=== PATIENT | male | born 1945 | race Caucasian/White ===

== ENCOUNTER → 2019-02-12 | Outpatient (CLI) | payer MEDICARE, OTHER ==
[~2019-02-12] MED LIST: BARIUM SUSPENSION 2.1% (VANILLA SILQ) 450 ML PO ONE; CATHETER FLUSH 10 ML SYR IV PRN; HOLD METFORMIN - RECEIVED CONTRAST 20 ML VIAL IV SCH; IOHEXOL 350 MG/ML 100 ML (OMNIPAQUE 350) VIAL IV ONE; NS 100 ML (IVPB) BAG IV ONE
--- NOTE | 2019-02-12 09:12 | Diagnostic Imaging Report ---
EXAMINATION: CT Chest with intravenous contrast, CT Abdomen and Pelvis without and with intravenous contrast. TECHNIQUE: Pre and post intravenous contrast axial imaging of the abdomen and pelvis and post contrast axial imaging of the chest were performed. All CT scans use one or more of the following dose optimizing techniques: automated exposure control, MA and/or KvP adjustment based on a patient size and exam type, or iterative reconstruction. HISTORY: PANCREATIC MASS COMPARISON: None available. FINDINGS: The lungs are clear without edema or pneumonia. No pleural effusion or pneumothorax. No suspicious nodules. There is mild dependent atelectasis. Heart size is normal. No pericardial effusion. Aorta is normal in caliber. There is no axillary or supraclavicular lymphadenopathy. There is no mediastinal lymphadenopathy. There are mild coronary artery calcifications. There are two indeterminate liver lesions. One in segment 8 measures 9 mm (series 3, image 21). The other in segment seven measures 11 mm (series 3, image 122). There is a cyst in segment two. There is a 26 x 33 mm mass centered in the pancreatic head which invades the duodenum, possibly circumferentially (series 3, image 144). It involves both the 2nd and 3rd portions of the duodenum. It exerts mass effect on the very distal most common bile duct which is slightly irregular with mild extrahepatic and central intra-hepatic biliary ductal dilation. There is no involvement of the superior mesenteric vein or portal vein. There is no involvement of the superior mesenteric artery. There is no involvement of the celiac artery. The kidneys are normal. There is no hydronephrosis. Urinary bladder is normal. There are no dilated loops of large or small bowel. No obstruction or inflammation. No free fluid or air. No abdominal or pelvic lymphadenopathy. Aorta is normal in caliber without aneurysm. There are no suspicious osseus lesions. IMPRESSION: 1. Pancreatic head mass invading the duodenum, possibly circumferentially involving the 2nd 3rd portions of duodenum. 2. Mass effect on the distal common bile duct with mild extrahepatic and central intrahepatic biliary ductal dilation. 3. No involvement of the mesenteric arterial or venous vasculature. 4. Indeterminate liver lesions measuring about 1 cm, not clearly cystic based on attenuation and indeterminate for metastases Dictated by: Dictated on workstation # [id number]
== END ==
LOC: RAD 07:46
PROVIDERS: ATTEND Family Medicine
DX: K86.89 Other specified diseases of pancreas (principal); K76.9 Liver disease, unspecified
CPT/HCPCS: 71260; 74178

== ENCOUNTER → 2019-02-20 | Outpatient (CLI) | payer MEDICARE, OTHER ==
[2019-02-20 09:24] LABS: BASOPHILS # (AUTO) 0.1 10^3/uL (0.0-0.1); BASOPHILS % (AUTO) 1 % (0-10); EOSINOPHILS # (AUTO) 0.2 10^3/uL (0.0-0.3); EOSINOPHILS % (AUTO) 3 % (0-10); HEMATOCRIT 40 % (40-54); HEMOGLOBIN 13.3 G/DL (13.3-17.7); LYMPHOCYTES # (AUTO) 1.9 X 10^3 (1.0-4.0); LYMPHOCYTES % (AUTO) 24 % (12-44); MEAN CORPUSCULAR HEMOGLOBIN 29 PG (25-34); MEAN CORPUSCULAR HGB CONC 33 G/DL (32-36); MEAN CORPUSCULAR VOLUME 89 FL (80-99); MEAN PLATELET VOLUME 10.8 FL (7.4-10.4); MONOCYTES # (AUTO) 0.9 X 10^3 (0.0-1.0); MONOCYTES % (AUTO) 12 % (0-12); NEUTROPHILS # (AUTO) 4.9 X 10^3 (1.8-7.8); NEUTROPHILS % (AUTO) 62 % (42-75); PLATELET COUNT 210 10^3/uL (130-400); RED CELL DISTRIBUTION WIDTH 14.1 % (10.0-14.5)
[2019-02-20 09:50] LABS: ALANINE AMINOTRANSFERASE 430 U/L (0-55); ALBUMIN 4.1 GM/DL (3.2-4.5); ALKALINE PHOSPHATASE 313 U/L (40-136); BILIRUBIN,TOTAL 2.8 MG/DL (0.1-1.0); BUN/CREATININE RATIO 12; CALCIUM 9.9 MG/DL (8.5-10.1); CARBON DIOXIDE 26 MMOL/L (21-32); CHLORIDE 98 MMOL/L (98-107); CREATININE SERUM 1.04 MG/DL (0.60-1.30); GFR ESTIMATED > 60; GLUCOSE 133 MG/DL (70-105); POTASSIUM 4.2 MMOL/L (3.6-5.0); SODIUM 135 MMOL/L (135-145); TOTAL PROTEIN 7.4 GM/DL (6.4-8.2)
--- NOTE | 2019-02-20 13:53 | Diagnostic Imaging Report ---
INDICATION: Pancreatic head mass. TECHNIQUE: Serum blood glucose level at the time of injection is 130 mg/dL. Patient was administered 15.3 mCi of F-18 FDG intravenously in the left antecubital location and PET imaging from the top of the skull to mid thighs was performed. Noncontrast CT was also performed for attenuation correction and anatomic correlation. COMPARISON: No prior PET studies are available for comparison. Comparison is made with recent CT exam from 02/12/2019. FINDINGS: There is symmetric activity throughout the brain. Soft tissues of the neck are unremarkable. No hilar or mediastinal hypermetabolism is seen. No suspicious pulmonary parenchymal hypermetabolism is identified. There are linear zones of parenchymal density in bilateral lower lobes suggestive of atelectasis. There are several foci of hypermetabolism within the liver correlating with the small low densities noted on recent CT which are too small to characterize. SUV max is approximately 6.4. Intense hypermetabolism in the region of the pancreatic head mass is seen with SUV max of approximately 10.3. No other regions of hypermetabolism are identified. IMPRESSION: Hypermetabolic pancreatic head mass consistent with pancreatic neoplasm. In addition, there are at least two foci of hypermetabolism within the liver, suggestive of hepatic metastases. Dictated by: Dictated on workstation # [id number]
== END ==
LOC: RAD 09:10
PROVIDERS: ATTEND Internal Medicine Hematology & Oncology
DX: K86.89 Other specified diseases of pancreas (principal); N39.8 Other specified disorders of urinary system; R63.4 Abnormal weight loss
CPT/HCPCS: 36415; 80053; 83615; 85025

== ENCOUNTER → 2019-04-16 | Outpatient (CLI) | payer MEDICARE, OTHER ==
[2019-04-16 07:47] LABS: BASOPHILS % (AUTO) 0 % (0-10); EOSINOPHILS # (AUTO) 0.1 10^3/uL (0.0-0.3); EOSINOPHILS % (AUTO) 4 % (0-10); HEMATOCRIT 31 % (40-54); HEMOGLOBIN 10.2 G/DL (13.3-17.7); LYMPHOCYTES # (AUTO) 0.7 X 10^3 (1.0-4.0); LYMPHOCYTES % (AUTO) 33 % (12-44); MEAN CORPUSCULAR HEMOGLOBIN 30 PG (25-34); MEAN CORPUSCULAR HGB CONC 33 G/DL (32-36); MEAN CORPUSCULAR VOLUME 91 FL (80-99); MEAN PLATELET VOLUME 8.6 FL (7.4-10.4); MONOCYTES # (AUTO) 0.1 X 10^3 (0.0-1.0); MONOCYTES % (AUTO) 4 % (0-12); NEUTROPHILS # (AUTO) 1.3 X 10^3 (1.8-7.8); NEUTROPHILS % (AUTO) 59 % (42-75); PLATELET COUNT 173 10^3/uL (130-400); RED CELL DISTRIBUTION WIDTH 16.8 % (10.0-14.5); WHITE BLOOD COUNT 2.2 10^3/uL (4.3-11.0)
[2019-04-16 08:09] LABS: ALANINE AMINOTRANSFERASE 64 U/L (0-55); ALBUMIN 3.9 GM/DL (3.2-4.5); ALKALINE PHOSPHATASE 118 U/L (40-136); BILIRUBIN,TOTAL 0.9 MG/DL (0.1-1.0); BUN/CREATININE RATIO 9; CALCIUM 9.3 MG/DL (8.5-10.1); CARBON DIOXIDE 24 MMOL/L (21-32); CHLORIDE 104 MMOL/L (98-107); CREATININE SERUM 1.03 MG/DL (0.60-1.30); GFR ESTIMATED > 60; GLUCOSE 103 MG/DL (70-105); POTASSIUM 4.1 MMOL/L (3.6-5.0); SODIUM 138 MMOL/L (135-145)
== END ==
LOC: LAB 07:32
PROVIDERS: ATTEND Internal Medicine Hematology & Oncology
DX: C25.0 Malignant neoplasm of head of pancreas (principal)
CPT/HCPCS: 36415; 80053; 83615; 85025; 86301

== ENCOUNTER → 2019-04-24 | Outpatient (CLI) | payer MEDICARE, OTHER ==
[2019-04-24 09:15] LABS: BASOPHILS # (AUTO) 0.1 10^3/uL (0.0-0.1); BASOPHILS % (AUTO) 2 % (0-10); EOSINOPHILS # (AUTO) 0.2 10^3/uL (0.0-0.3); EOSINOPHILS % (AUTO) 5 % (0-10); HEMATOCRIT 36 % (40-54); HEMOGLOBIN 11.6 G/DL (13.3-17.7); LYMPHOCYTES # (AUTO) 1.1 X 10^3 (1.0-4.0); LYMPHOCYTES % (AUTO) 24 % (12-44); MEAN CORPUSCULAR HEMOGLOBIN 30 PG (25-34); MEAN CORPUSCULAR HGB CONC 32 G/DL (32-36); MEAN CORPUSCULAR VOLUME 93 FL (80-99); MEAN PLATELET VOLUME 9.1 FL (7.4-10.4); MONOCYTES # (AUTO) 0.8 X 10^3 (0.0-1.0); MONOCYTES % (AUTO) 16 % (0-12); NEUTROPHILS # (AUTO) 2.5 X 10^3 (1.8-7.8); NEUTROPHILS % (AUTO) 54 % (42-75); PLATELET COUNT 328 10^3/uL (130-400); WHITE BLOOD COUNT 4.7 10^3/uL (4.3-11.0)
[2019-04-24 09:42] LABS: ALANINE AMINOTRANSFERASE 27 U/L (0-55); ALKALINE PHOSPHATASE 108 U/L (40-136); BILIRUBIN,TOTAL 0.9 MG/DL (0.1-1.0); BUN/CREATININE RATIO 10; CALCIUM 9.3 MG/DL (8.5-10.1); CARBON DIOXIDE 23 MMOL/L (21-32); CHLORIDE 104 MMOL/L (98-107); CREATININE SERUM 1.01 MG/DL (0.60-1.30); GFR ESTIMATED > 60; GLUCOSE 112 MG/DL (70-105); POTASSIUM 4.4 MMOL/L (3.6-5.0); SODIUM 141 MMOL/L (135-145)
--- NOTE | 2019-04-24 12:44 | Diagnostic Imaging Report ---
INDICATION: Pancreatic cancer. Study is performed to assess response to treatment and restaging. TECHNIQUE: Serum blood glucose level at the time of injection was 119 mg/dL. The patient was administered 14.4 mCi of F-18 FDG intravenously in the right antecubital location, and PET imaging was performed from the top of the skull to mid thighs. Noncontrast CT was also performed for attenuation correction and anatomic correlation. COMPARISON: Correlation is made with prior PET/CT from 02/20/[address] chest, abdomen, and pelvis study from 02/12/2019. FINDINGS: There is symmetric activity throughout the brain. Soft tissues of the neck are unremarkable. No suspicious hypermetabolism in the chest is identified. There has been significant reduction in the degree of hypermetabolism in the region of the pancreatic head when compared with prior study. There is some mild residual uptake with SUV max of approximately 4.8. Mild uptake involving several small liver lesions is also seen but also appears to be less intense when compared with prior exam. Patient has an internal/external biliary drain. No new focus of hypermetabolism in the abdomen or pelvis is seen. IMPRESSION: Decrease in size of pancreatic head mass as well as overall decrease in the degree of hypermetabolism when compared with prior PET/CT study from two months earlier. There is also some decrease in intensity of hepatic metastases since the prior exam. No new abnormality is identified. Dictated by: Dictated on workstation # [id number]
== END ==
LOC: RAD 08:52
PROVIDERS: ATTEND Internal Medicine Hematology & Oncology
DX: C25.9 Malignant neoplasm of pancreas, unspecified (principal); C78.7 Secondary malignant neoplasm of liver and intrahepatic bile duct
CPT/HCPCS: 36415; 80053; 85025

== ENCOUNTER → 2019-08-01 | Outpatient (CLI) | payer MEDICARE, OTHER ==
[2019-08-01 11:22] LABS: HEMATOCRIT 33 % (40-54); HEMOGLOBIN 10.7 G/DL (13.3-17.7); MEAN CORPUSCULAR HEMOGLOBIN 32 PG (25-34); MEAN CORPUSCULAR HGB CONC 32 G/DL (32-36); MEAN CORPUSCULAR VOLUME 99 FL (80-99); RED CELL DISTRIBUTION WIDTH 17.5 % (10.0-14.5)
[2019-08-01 11:23] LABS: BASOPHILS % (AUTO) 1 % (0-10); EOSINOPHILS % (AUTO) 0 % (0-10); LYMPHOCYTES % (AUTO) 12 % (12-44); MEAN PLATELET VOLUME 10.3 FL (7.4-10.4); MONOCYTES % (AUTO) 7 % (0-12); PLATELET COUNT 48 10^3/uL (130-400)
[2019-08-01 11:25] LABS: BASOPHILS # (AUTO) 0.1 10^3/uL (0.0-0.1); LYMPHOCYTES # (AUTO) 1.4 X 10^3 (1.0-4.0); MONOCYTES # (AUTO) 0.8 X 10^3 (0.0-1.0)
[2019-08-01 11:27] LABS: NEUTROPHILS % (AUTO) 77 % (42-75)
[2019-08-01 11:28] LABS: NEUTROPHILS # (AUTO) 9.3 X 10^3 (1.8-7.8)
== END ==
LOC: LAB FS 10:17
PROVIDERS: ATTEND Internal Medicine Hematology & Oncology
DX: C25.0 Malignant neoplasm of head of pancreas (principal)
CPT/HCPCS: 36415; 85025

== ENCOUNTER 2019-08-08 11:00 | Outpatient (RCR) | payer MEDICARE, OTHER ==
[2019-07-04 11:49] LABS: HEMATOCRIT 35 % (40-54); MEAN CORPUSCULAR HEMOGLOBIN 31 PG (25-34); MEAN CORPUSCULAR HGB CONC 32 G/DL (32-36); MEAN CORPUSCULAR VOLUME 98 FL (80-99); PLATELET COUNT 48 10^3/uL (130-400); RED CELL DISTRIBUTION WIDTH 16.4 % (10.0-14.5); WHITE BLOOD COUNT 17.6 10^3/uL (4.3-11.0)
[2019-07-04 11:50] LABS: BASOPHILS % (AUTO) 1 % (0-10); EOSINOPHILS % (AUTO) 0 % (0-10); LYMPHOCYTES % (AUTO) 10 % (12-44); MEAN PLATELET VOLUME 9.7 FL (7.4-10.4); MONOCYTES % (AUTO) 9 % (0-12); NEUTROPHILS % (AUTO) 71 % (42-75)
[2019-07-04 11:51] LABS: BASOPHILS # (AUTO) 0.1 10^3/uL (0.0-0.1); LYMPHOCYTES # (AUTO) 1.7 X 10^3 (1.0-4.0); MONOCYTES # (AUTO) 1.5 X 10^3 (0.0-1.0); NEUTROPHILS # (AUTO) 12.4 X 10^3 (1.8-7.8)
[2019-07-11 12:01] LABS: ALANINE AMINOTRANSFERASE 18 U/L (0-55); ALBUMIN 3.8 GM/DL (3.2-4.5); ALKALINE PHOSPHATASE 117 U/L (40-136); BILIRUBIN,TOTAL 0.4 MG/DL (0.1-1.0); BUN/CREATININE RATIO 11; CALCIUM 9.2 MG/DL (8.5-10.1); CARBON DIOXIDE 26 MMOL/L (21-32); CHLORIDE 103 MMOL/L (98-107); CREATININE SERUM 0.96 MG/DL (0.60-1.30); GFR ESTIMATED > 60; GLUCOSE 148 MG/DL (70-105); POTASSIUM 4.3 MMOL/L (3.6-5.0); SODIUM 142 MMOL/L (135-145); TOTAL PROTEIN 7.2 GM/DL (6.4-8.2)
[2019-07-11 12:02] LABS: HEMATOCRIT 37 % (40-54); HEMOGLOBIN 11.6 G/DL (13.3-17.7); MEAN CORPUSCULAR HEMOGLOBIN 32 PG (25-34); MEAN CORPUSCULAR HGB CONC 32 G/DL (32-36); MEAN CORPUSCULAR VOLUME 100 FL (80-99); MEAN PLATELET VOLUME 10.3 FL (7.4-10.4); PLATELET COUNT 279 10^3/uL (130-400); RED CELL DISTRIBUTION WIDTH 18.1 % (10.0-14.5); WHITE BLOOD COUNT 9.4 10^3/uL (4.3-11.0)
[2019-07-11 12:03] LABS: BASOPHILS # (AUTO) 0.1 10^3/uL (0.0-0.1); BASOPHILS % (AUTO) 1 % (0-10); EOSINOPHILS # (AUTO) 0.2 10^3/uL (0.0-0.3); EOSINOPHILS % (AUTO) 2 % (0-10); LYMPHOCYTES # (AUTO) 2.2 X 10^3 (1.0-4.0); LYMPHOCYTES % (AUTO) 23 % (12-44); MONOCYTES # (AUTO) 1.1 X 10^3 (0.0-1.0); MONOCYTES % (AUTO) 11 % (0-12); NEUTROPHILS # (AUTO) 5.9 X 10^3 (1.8-7.8); NEUTROPHILS % (AUTO) 63 % (42-75)
[2019-08-08 11:23] LABS: HEMATOCRIT 34 % (40-54); HEMOGLOBIN 11.1 G/DL (13.3-17.7); MEAN CORPUSCULAR HEMOGLOBIN 32 PG (25-34); WHITE BLOOD COUNT 6.6 10^3/uL (4.3-11.0)
[2019-08-08 11:24] LABS: BASOPHILS % (AUTO) 1 % (0-10); EOSINOPHILS # (AUTO) 0.3 10^3/uL (0.0-0.3); EOSINOPHILS % (AUTO) 4 % (0-10); LYMPHOCYTES # (AUTO) 1.6 X 10^3 (1.0-4.0); LYMPHOCYTES % (AUTO) 25 % (12-44); MEAN CORPUSCULAR HGB CONC 32 G/DL (32-36); MEAN CORPUSCULAR VOLUME 98 FL (80-99); MEAN PLATELET VOLUME 10.9 FL (7.4-10.4); MONOCYTES # (AUTO) 0.9 X 10^3 (0.0-1.0); MONOCYTES % (AUTO) 14 % (0-12); NEUTROPHILS # (AUTO) 3.7 X 10^3 (1.8-7.8); NEUTROPHILS % (AUTO) 56 % (42-75); PLATELET COUNT 179 10^3/uL (130-400); RED CELL DISTRIBUTION WIDTH 19.3 % (10.0-14.5)
[2019-08-08 11:36] LABS: POTASSIUM 4.2 MMOL/L (3.6-5.0); SODIUM 134 MMOL/L (135-145)
[2019-08-08 11:37] LABS: ALANINE AMINOTRANSFERASE 31 U/L (0-55); ALBUMIN 3.9 GM/DL (3.2-4.5); ALKALINE PHOSPHATASE 103 U/L (40-136); BILIRUBIN,TOTAL 0.4 MG/DL (0.1-1.0); BUN/CREATININE RATIO 10; CALCIUM 9.3 MG/DL (8.5-10.1); CARBON DIOXIDE 24 MMOL/L (21-32); CHLORIDE 99 MMOL/L (98-107); CREATININE SERUM 1.05 MG/DL (0.60-1.30); GFR ESTIMATED > 60; GLUCOSE 122 MG/DL (70-105); TOTAL PROTEIN 7.3 GM/DL (6.4-8.2)
== END 2019-10-02 | disposition home or self-care (01) ==
LOC: LAB FS 11:00
PROVIDERS: ATTEND Internal Medicine Hematology & Oncology
DX: C25.0 Malignant neoplasm of head of pancreas (principal)
CPT/HCPCS: 36415; 80053; 83615; 85025; 86301

== ENCOUNTER → 2019-08-14 | Outpatient (CLI) | payer MEDICARE, OTHER ==
--- NOTE | 2019-08-14 13:08 | Diagnostic Imaging Report ---
EXAMINATION: PET/CT. INDICATION: Pancreatic ductal adenocarcinoma. TECHNIQUE: PET/CT imaging was obtained from the base of the skull through the pelvis after the administration of 15.5 mCi of F-18 fluorodeoxyglucose into the right antecubital fossa. Limited CT imaging was utilized for localization and attenuation correction purposes. The low energy CT utilized for attenuation correction is not considered to be of high enough spatial resolution to allow in and of itself a separate anatomical analysis. The patient weight was 215 pounds, height 6' 3", blood glucose level 108. COMPARISON: The previous PET/CT exam with color images performed on 04/24/2019 is not available for direct comparison. The study was able to be reviewed on PACS, however. FINDINGS: The report from the previous exam did note a reduction in the degree of hypermetabolism in the region of the pancreatic head when compared to the prior study of 02/20/2019. The maximum SUV in this area was 4.8. On this study, the maximum SUV in the region of the head of the pancreas is approximately 3. The CT images through the head of the pancreas seems stable when compared to the prior exam as well. The previous exam also suggested mild uptake involving several small liver lesions. An SUV value was not computed for these areas of abnormal uptake, however. On the axial series of this exam, there is a small linear area of increased uptake in the right lobe of the liver (image 181 of 335). This has a maximum SUV of approximately 3.4; however, there is no corresponding abnormality seen on the sagittal coronal reconstructed images and consequently this finding could be related to volume averaging as opposed to a discrete lesion. The liver is otherwise unremarkable. There is no other hypermetabolic activity seen to suggest the presence of malignancy. Physiologic activity is again seen in the brain, heart, kidneys, bowel, and bladder. The CT images failed to show any sign of an acute abnormality. The biliary drain noted on the prior exam is again evident and seems similar in position to the prior study. The splenomegaly seen on the prior exam is also no different. As seen on the prior exam, there is mild atelectasis/scar formation in each lung base. The lungs are otherwise generally clear. IMPRESSION: 1. There appears to be diminished uptake in the region of the head of the pancreas when compared to the report of the prior exam. There is no clear evidence for metastatic disease involving the liver either. 2. There is no other hypermetabolic activity seen to suggest the presence of malignancy. Dictated by: Dictated on workstation # [id number]
== END ==
LOC: RAD 10:09
PROVIDERS: ATTEND Internal Medicine Hematology & Oncology
DX: C25.0 Malignant neoplasm of head of pancreas (principal)

== ENCOUNTER → 2019-10-12 | Outpatient (CLI) | payer MEDICARE, OTHER ==
[~2019-10-12] MED LIST changes: -BARIUM SUSPENSION 2.1% (VANILLA SILQ) 450 ML PO ONE; +DIATRIZOATE MEGLUM/SODIUM 37% 120 ML (GASTROGRAFIN) PO ONE
--- NOTE | 2019-10-12 13:47 | Diagnostic Imaging Report ---
PROCEDURE: CT abdomen and pelvis with contrast. TECHNIQUE: Multiple contiguous axial images were obtained through the abdomen and pelvis after administration of intravenous contrast. Auto Exposure Controls were utilized during the CT exam to meet ALARA standards for radiation dose reduction. INDICATION: Percutaneous biliary catheter, changed approximately four days ago. Patient complains of nausea and abdominal distention. COMPARISON: Correlation is made with prior CT from 02/12/2019. FINDINGS: Imaging through lung bases does show areas of linear parenchymal density in bilateral lower lobes consistent with some scarring or atelectasis. Since prior study, patient has had an internal/external percutaneous biliary catheter placed which extends into the right lobe of the liver. The distal loop is located at the junction of the second and third portion of the duodenum. The degree of the biliary ductal dilatation has significantly improved since prior exam. Gallbladder is unremarkable. Subtle low-density lesions within the right lobe of the liver appears stable. No new liver mass is identified. Previously noted pancreatic mass invading the duodenum is not as well seen on today's study. There is some pancreatic ductal dilatation in the pancreatic head and body. Patient does have fairly significant distention of the stomach with fluid. There is also significant distention of the second portion of the duodenum. The third and fourth portion appear to be decompressed. No adrenal mass is identified. The spleen is unremarkable. Kidneys are unremarkable. Aorta is non-aneurysmal. Remainder of the bowel loops are decompressed. No free fluid or fluid collection is seen. The bladder and prostate are unremarkable. No definite abdominal or pelvic lymphadenopathy is seen. Bony structures are unremarkable. IMPRESSION: 1. Placement of internal/external biliary drainage catheter since CT from 02/12/2019. The degree of biliary ductal dilatation has improved. 2. Stable right lobe liver masses. 3. There is fairly significant distention of the stomach and proximal duodenum, as described, suspicious for obstruction at the level of the second portion of the duodenum. Third and fourth portions of duodenum and remainder of the small bowel is decompressed. Patient may benefit from an NG tube. 4. No other significant abnormality is detected. Dictated by: Dictated on workstation # [id number]
== END ==
LOC: RAD FS 10:20
PROVIDERS: ATTEND Internal Medicine Hematology & Oncology
DX: K76.89 Other specified diseases of liver (principal); R11.0 Nausea; R14.0 Abdominal distension (gaseous); Z96.89 Presence of other specified functional implants
CPT/HCPCS: 74177

== ENCOUNTER → 2020-02-19 | Outpatient (CLI) | payer MEDICARE, OTHER ==
--- NOTE | 2020-02-19 11:45 | Diagnostic Imaging Report ---
INDICATION: Pancreatic carcinoma, restaging. TECHNIQUE: The serum blood glucose level at the time of injection was 102 mg/dL. The patient was administered 14.0 mCi of F-18 FDG intravenously in the right antecubital location and PET imaging was performed from the top of the skull to the mid thighs. A noncontrast CT was also performed for attenuation correction and anatomic correlation. COMPARISON: No prior imaging is available for comparison. FINDINGS: There is symmetric activity throughout the brain. The soft tissues of the neck are unremarkable. No definite hilar hypermetabolism is seen. There is a probable hypermetabolic lymph node in the mediastinum posterior to the esophagus at the level of the aortic arch measuring 14 mm. The SUV max is approximately 5.5. No other mediastinal uptake is seen. There are small bilateral pleural effusions present. Imaging through the abdomen does show a percutaneous biliary drain as well as a common duct stent. Numerous areas of hypermetabolism in the peripancreatic and central retroperitoneal regions are noted. An area of hypermetabolism adjacent to the stent shows an SUV max of 8.7. An enlarged left periaortic lymph node at the level of the kidneys measures 15 mm and shows an SUV max of 7.5. There are additional hypermetabolic central retroperitoneal and peripancreatic lymph nodes. A 14 mm retrocrural hypermetabolic lymph node is present showing an SUV max of 5.2. The small and large bowel loops are normal in caliber. There is no free fluid. No other hypermetabolic foci within the abdomen or pelvis are seen. There is diffuse osseous uptake of activity. Increased activity is seen throughout the cervical, thoracic, and lumbar spine. There is activity noted throughout the bony pelvis, bilateral ribs, and sternum as well as bilateral shoulders and proximal femora. IMPRESSION: Numerous foci of hypermetabolism are identified. There are hypermetabolic lymph nodes in the mediastinum as well as the peripancreatic region as well as the central retroperitoneum and retrocrural region of the abdomen. There is also diffuse osseous hypermetabolic activity, as described, without definite CT correlate. Correlation with MRI of the spine would be useful to evaluate for osseous metastatic disease. No other significant abnormality is detected. Dictated by: Dictated on workstation # [id number]
== END ==
LOC: RAD 09:00
PROVIDERS: ATTEND Internal Medicine Hematology & Oncology
DX: C25.9 Malignant neoplasm of pancreas, unspecified (principal)
CPT/HCPCS: 78815; A9552

== ENCOUNTER → 2020-03-21 | Outpatient (CLI) | payer MEDICARE, OTHER ==
[2020-03-21 11:09] LABS: HEMATOCRIT 23 % (40-54); HEMOGLOBIN 7.3 G/DL (13.3-17.7); MEAN CORPUSCULAR HEMOGLOBIN 34 PG (25-34); MEAN CORPUSCULAR HGB CONC 32 G/DL (32-36); MEAN CORPUSCULAR VOLUME 106 FL (80-99); MEAN PLATELET VOLUME 10.5 FL (7.4-10.4); PLATELET COUNT 111 10^3/uL (130-400); WHITE BLOOD COUNT 7.3 10^3/uL (4.3-11.0)
[2020-03-21 11:10] LABS: BASOPHILS % (AUTO) 1 % (0-10); EOSINOPHILS # (AUTO) 0.1 10^3/uL (0.0-0.3); EOSINOPHILS % (AUTO) 2 % (0-10); LYMPHOCYTES # (AUTO) 1.4 X 10^3 (1.0-4.0); LYMPHOCYTES % (AUTO) 19 % (12-44); MONOCYTES # (AUTO) 0.7 X 10^3 (0.0-1.0); MONOCYTES % (AUTO) 10 % (0-12); NEUTROPHILS % (AUTO) 69 % (42-75)
== END ==
LOC: LAB FS 10:42
PROVIDERS: ATTEND Internal Medicine Hematology & Oncology
DX: C25.0 Malignant neoplasm of head of pancreas (principal)
CPT/HCPCS: 36415; 82728; 83540; 85025; 86301

== ENCOUNTER → 2020-03-28 | Outpatient (CLI) | payer MEDICARE, OTHER ==
--- NOTE | 2020-03-28 14:28 | Diagnostic Imaging Report ---
PROCEDURE: CT abdomen and pelvis without contrast. TECHNIQUE: Multiple contiguous axial images were obtained through the abdomen and pelvis without the use of intravenous contrast. Auto Exposure Controls were utilized during the CT exam to meet ALARA standards for radiation dose reduction. INDICATION: Pancreatic cancer COMPARISON with CT abdomen and pelvis performed 10/12/2019. That exam included intravenous contrast. Was also correlated with a metabolic PET CT performed 02/19/2020. FINDINGS: Small bilateral pleural effusions, nonloculated, but slightly increased in the interim. There are multiple new low density but believed solid masses having developed in the right greater than left hepatic lobes, presumptively multifocal hepatic metastases. The largest of these is measuring 3.6 cm in segment 7. Retrocrural mass shown to be metabolically active adjacent to the upper abdominal aorta is 1.6 cm, slightly increased from the correlative PET and new from the comparison CT. Additional new smaller subcentimeter retrocrural lymph nodes have developed, presumed progressive metastases. There pancreatic body and tail atrophy and ductal dilatation. Soft tissue fullness at the pancreatic head peripheral to the stent. It is difficult to measure with accuracy given the absence of enteric and vascular contrast media. There is an internal/external biliary drainage catheter distally looped in the duodenum. Periaortic retroperitoneal adenopathy is not notably changed anatomically when correlated with earlier PET. These lesions were metabolically active and presumed metastatic. There is resolution of prior gastric dilatation. There is no bowel obstruction. There is a small volume of pelvic free fluid increased from prior. No discrete lytic or sclerotic bony lesion. IMPRESSION: Development of multifocal hepatic metastases, retrocrural periaortic and mesenteric adenopathy again noted. The former slightly increased internal/external biliary drainage catheter in good alignment without appreciable abnormal ductal dilatation at this nonenhanced study. No suspicious bony lesion. Slight increased nonloculated pleural effusions. Dictated by: Dictated on workstation # [id number]
== END ==
LOC: RAD FS 13:36
PROVIDERS: ATTEND Internal Medicine Hematology & Oncology
DX: C25.9 Malignant neoplasm of pancreas, unspecified (principal)
CPT/HCPCS: 74176